=== PATIENT | male | born 1990 | race Caucasian/White ===

== ENCOUNTER 2018-08-11 20:57 | Emergency (ER) | payer OTHER ==
[~2018-08-11] VITALS: Ht 170.2 cm; Wt 81.6 kg
[2018-08-12] MEDS ORDERED: ZOFRAN ODT8 MG PO (02:40)
[2018-08-12] MEDS ORDERED: PEPCID40 MG PO (02:40)
== END 2018-08-12 03:07 | disposition home or self-care (01) ==
LOC: ER 20:57
DX: K29.70 Gastritis, unspecified, without bleeding (principal)